=== PATIENT | male | born 1995 | race Caucasian/White ===

== ENCOUNTER 2016-11-15 19:44 | Emergency (ER) | payer BC, OTHER ==
[2016-11-15 20:03] VITALS: BP 136/81
[2016-11-15] MEDS ORDERED: Ciprofloxacin TAB* 500 MG PO ONE (20:33)
--- NOTE | 2016-11-15 20:33 | UC ---
Complaint Male HPI - History of Current Complaint Chief Complaint: UCGU Stated Complaint: TESTICULAR PAIN Hx Obtained From: Patient Onset/Duration: Gradual Onset - has had intermittant testicular pain over past 1 -2 weeks. has been in both R or L side at times. seems worse after sitting wrong. is in monogamous relationship with girlfriend of 3 years. no penil drip or lesions. denies known injury Timing: Intermittent, Lasting Minutes Severity Initially: Mild Severity Currently: Mild Location: Testicle - does not radiate, described as "dull ache" Alleviating Factor(s): Meds - ibuprofen, Ice Associated Signs And Symptoms: Positive: Negative. Negative: Back Pain, Fever, Hematuria, Dysuria, Constipation, Blood in Stool, Rectal Pain, Nausea, Penile Swelling, Penile Discharge - Allergies/Home Medications Allergies/Adverse Reactions: Allergies Allergy/AdvReac Type Severity Reaction Status Date / Time No Known Allergies Allergy Verified 10/28/15 05:14 PMH/Surg Hx/FS Hx/Imm Hx Previously Healthy: Yes Cardiovascular History Of: Denies: Cardiac Disorders Respiratory History Of: Denies: Asthma GI/ History Of: Denies: Gastroesophageal Reflux Psychological History Of: Denies: Anxiety, Depression - Surgical History Surgical History: None - Family History Known Family History: Positive: None - Social History Occupation: Employed Full-time - teacher Lives: With Family Alcohol Use: None Substance Use Type: None Smoking Status (MU): Never Smoked Tobacco Review of Systems Constitutional: Negative Skin: Negative Respiratory: Negative Cardiovascular: Negative Gastrointestinal: Negative Genitourinary: Other - testicular ache Motor: Negative Neurovascular: Negative Neurological: Negative Psychological: Negative All Other Systems Reviewed And Are Negative: Yes Physical Exam Triage Information Reviewed: Yes Appearance: Well-Appearing, No Pain Distress, Well-Nourished Vital Signs: Initial Vital Signs Temp 100.1 F 11/15/16 19:55 Pulse 128 11/15/16 19:55 Resp 18 11/15/16 19:55 BP 136/81 11/15/16 19:55 Pulse Ox 99 11/15/16 19:55 Vital Signs Reviewed: Yes Respiratory Exam: Normal Cardiovascular Exam: Normal Abdominal Exam: Normal Abdomen Description: Positive: Other: - no penile lesion or discharge, scrotum: no erythem, swelling or lesions, no pain or tenderness. no hernias Bilateral testicles smooth, equal in size and consistency, no palp pain, no mass or lesions. no vericocele or swollen epididymis. pt states testicles are not painful when touched, more when he sits or he "massages" his testicles. crimesteric reflex present bilaterally Musculoskeletal Exam: Normal Neurological Exam: Normal Psychological Exam: Normal Skin Exam: Normal Complaint Male Course/Dx - Differential Dx/Diagnosis Differential Diagnosis/HQI/PQRI: Epididymitis, Testicular Torsion, Trauma, Urinary Tract Infection, Other - STI, hydrocele, varicocele, hernia Provider Diagnoses: testicular pain Discharge - Discharge Plan Condition: Stable Disposition: HOME Prescriptions: Ciprofloxacin TAB* [Cipro Tab*] 500 mg PO BID #20 tab Patient Education Materials: Testicle Pain (ED) Referrals: Sydnie Ayala NP [Primary Care Provider] - Additional Instructions: Rest may use ice to area of pain use ibuprofen 800mg every 6 hours as needed for pain use antibiotic (Cipro) as prescribed. If your pain worsens at any time please report to the ER
== END 2016-11-15 20:50 | disposition home or self-care (01) ==
LOC: UCEAST 19:44
DX: N50.811 Right testicular pain (principal); N50.812 Left testicular pain
CPT/HCPCS: 99202; A9270-GY; G0463

== ENCOUNTER 2017-07-07 14:33 | Emergency (ER) | payer BC, OTHER ==
[2017-07-07 15:17] VITALS: BP 130/68
[2017-07-07] MEDS ORDERED: predniSONE TAB* 20 MG PO ONE (15:56)
--- NOTE | 2017-07-07 15:59 | UC ---
Lower Extremity/Ankle HPI - HPI Summary HPI Summary: 22 yo male with right great toe and redness x days no trauma hurts to bear wt - History of Current Complaint Chief Complaint: UCLowerExtremity Stated Complaint: FOOT PAIN Time Seen by Provider: 07/07/17 15:50 Hx Obtained From: Patient Onset/Duration: Gradual Onset, Lasting Days Severity Initially: Mild Severity Currently: Moderate Pain Intensity: 4 - 8/10 with wt bearing Pain Scale Used: 0-10 Numeric Aggravating Factor(s): Standing, Ambulation Alleviating Factor(s): Rest Able to Bear Weight: Yes - Allergies/Home Medications Allergies/Adverse Reactions: Allergies Allergy/AdvReac Type Severity Reaction Status Date / Time No Known Allergies Allergy Verified 07/07/17 15:17 Home Medications: Home Medications Ibuprofen TAB* [Advil TAB*] 800 mg PO ONCE 07/07/17 [History Confirmed 07/07/17] PMH/Surg Hx/FS Hx/Imm Hx Previously Healthy: Yes - Surgical History Surgical History: None - Family History Known Family History: Positive: Hypertension, Other - no known hx of gout - Social History Alcohol Use: Occasionally Substance Use Type: None Smoking Status (MU): Never Smoked Tobacco Review of Systems Constitutional: Negative Skin: Negative Eyes: Negative ENT: Negative Respiratory: Negative Cardiovascular: Negative Gastrointestinal: Negative Genitourinary: Negative Motor: Negative Neurovascular: Negative Musculoskeletal: Arthralgia Neurological: Negative Psychological: Negative Is Patient Immunocompromised?: No All Other Systems Reviewed And Are Negative: Yes Physical Exam Triage Information Reviewed: Yes Appearance: Well-Appearing, No Pain Distress, Well-Nourished Vital Signs: Initial Vital Signs Temp 100 F 07/07/17 15:13 Pulse 96 07/07/17 15:13 Resp 18 07/07/17 15:13 BP 130/68 07/07/17 15:13 Pulse Ox 100 07/07/17 15:13 Eyes: Positive: Conjunctiva Clear ENT: Positive: Hearing grossly normal. Negative: Nasal congestion, Nasal drainage, Trismus, Muffled/hoarse voice Dental: Negative: Gross Decay/Caries @, Dental Fracture @ Neck: Positive: Supple Respiratory: Positive: Lungs clear, Normal breath sounds, No respiratory distress Cardiovascular: Positive: RRR, No Murmur Musculoskeletal: Positive: Other: - right first MTP joint red and swollen Neurological: Positive: Alert, Muscle Tone Normal Psychological Exam: Normal Skin Exam: Normal Diagnostics - Radiology No standard instances Xray Interpretation: No Acute Changes Radiology Interpretation Completed By: Radiologist Lower Extremity Course/Dx - Differential Dx/Diagnosis Provider Diagnoses: gout Discharge - Discharge Plan Condition: Stable Disposition: HOME Prescriptions: Prednisone 60 mg PO DAILY #6 tab Patient Education Materials: Low Purine Diet (ED), Gout (ED) Referrals: [facility] [place] [facility]FERR[facility] [Outside] - As Soon As Possible Additional Instructions: post op shoe recheck in 4 days if not better
--- NOTE | 2017-07-07 16:37 | RAD ---
INDICATION: Atraumatic right great toe metatarsal phalangeal joint pain TECHNIQUE: 3 views of the right great toe were obtained. FINDINGS: The visualized bones are normal alignment. Joint spaces appear maintained. No fracture is seen. IMPRESSION: NO EVIDENCE FOR FRACTURE. IF THE PATIENT'S SYMPTOMS PERSIST RECOMMEND FOLLOW-UP IMAGING.
== END 2017-07-07 16:47 | disposition home or self-care (01) ==
LOC: UCEAST 14:33
DX: M10.9 Gout, unspecified (principal)
CPT/HCPCS: 99213; G0463; J7512

== ENCOUNTER 2017-10-12 15:45 | Emergency (ER) | payer OTHER ==
--- NOTE | 2017-10-12 17:14 | UC ---
Abdominal Pain Male HPI - HPI Summary HPI Summary: 22 YO MALE WITH LLQ ABD PAIN X 2-3 DAYS FEELS BLOATED ANOREXIC SL NAUSEA NO VOMITING NO DIARRHEA NO CONSTIPATION NORMAL BMs NO UTI SYMPTOMS NO TESTICULAR PAIN NO BACK PAIN - History of Current Complaint Chief Complaint: UCAbdominalPain Stated Complaint: ABD PAIN Time Seen by Provider: 10/12/17 16:58 Hx Obtained From: Patient Onset/Duration: Gradual Onset, Lasting Hours, Lasting Days Severity Initially: Moderate Severity Currently: Moderate Pain Intensity: 3 - AT REST, 6+ WITH MOVEMENT Pain Scale Used: 0-10 Numeric Location: Discrete At: LLQ Radiates: No Character: Aching, Dull Aggravating Factor(s): Movement Alleviating Factor(s): Rest Associated Signs And Symptoms: Positive: Decreased Appetite - Risk Factors Testicular Torsion: Negative Cardiac Risk Factors: Negative - Allergies/Home Medications Allergies/Adverse Reactions: Allergies Allergy/AdvReac Type Severity Reaction Status Date / Time No Known Allergies Allergy Verified 10/12/17 15:57 Home Medications: Home Medications Simethicone TAB* [Mylicon TAB*] 80 mg PO AC PRN 10/12/17 [History Confirmed 05/22] PMH/Surg Hx/FS Hx/Imm Hx Previously Healthy: Yes - Surgical History Surgical History: None - Family History Known Family History: Positive: Hypertension, Other - no known hx of gout - Social History Alcohol Use: Rare Substance Use Type: None Smoking Status (MU): Never Smoked Tobacco - Immunization History Most Recent Influenza Vaccination: none Review of Systems Constitutional: Negative Skin: Negative Eyes: Negative ENT: Negative Respiratory: Negative Cardiovascular: Negative Gastrointestinal: Abdominal Pain Genitourinary: Negative Motor: Negative Neurovascular: Negative Musculoskeletal: Negative Neurological: Negative Psychological: Negative Is Patient Immunocompromised?: No All Other Systems Reviewed And Are Negative: Yes Physical Exam Triage Information Reviewed: Yes Appearance: Well-Appearing, No Pain Distress, Well-Nourished Vital Signs: Initial Vital Signs Temp 99.3 F 10/12/17 15:54 Pulse 100 10/12/17 15:54 Resp 16 10/12/17 15:54 BP 129/83 10/12/17 15:54 Pulse Ox 99 10/12/17 15:54 Eyes: Positive: Conjunctiva Clear ENT: Positive: Hearing grossly normal, Pharynx normal, Uvula midline. Negative : Muffled voice, Hoarse voice Neck: Positive: Supple, Nontender Respiratory: Positive: Lungs clear, Normal breath sounds, No respiratory distress, No accessory muscle use Cardiovascular: Positive: RRR, No Murmur Abdomen Description: Positive: No Organomegaly, Soft. Negative: Nontender - TENDER LLQ, Hernia @, Hepatomegaly, Splenomegaly Bowel Sounds: Positive: Hyperactive Musculoskeletal: Positive: ROM Intact, No Edema Neurological: Positive: Alert Psychological Exam: Normal Skin Exam: Normal Diagnostics - Radiology No standard instances Xray Interpretation: Positive (See Comments) - a lot ot stool in colon Radiology Interpretation Completed By: Radiologist Abd Pain Male Course/Dx - Differential Dx/Clinical Impression Provider Diagnoses: adbominal pain of uncertain cause Discharge - Discharge Plan Condition: Stable Disposition: HOME Patient Education Materials: Acute Abdominal Pain (ED) Forms: *Work Release Referrals: Reese Kessler MD [Primary Care Provider] - 1 Day Additional Instructions: your xr showed a lot of stool in the colon I suggest 30cc (2 tablespoons ) of milk of magnesia every 6 hours x 3 doses Get rechecked for new or worsening symptoms (best to be seen in ER if symptoms worsen) Get rechecked tomorrow if not completely better (you are welcome to return here if unable to get in to see your MD)
--- NOTE | 2017-10-12 17:52 | RAD ---
HISTORY: Left-sided abdominal pain COMPARISONS: None VIEWS: Frontal supine and upright views of the abdomen. FINDINGS: BOWEL: There is a nonobstructive bowel gas pattern. There is a large amount of stool within the colon. CALCULI: There are no abnormal calculi. BONES AND SOFT TISSUES: There are no osseous abnormalities. OTHER FINDINGS: The lung bases are clear. There is no subphrenic gas. IMPRESSION: NONOBSTRUCTIVE BOWEL GAS PATTERN. LARGE AMOUNT OF STOOL WITHIN THE COLON
[2017-10-12 18:09] VITALS: BP 121/73
== END 2017-10-12 18:05 | disposition home or self-care (01) ==
LOC: UCEAST 15:45
DX: R10.32 Left lower quadrant pain (principal); R14.0 Abdominal distension (gaseous); R63.0 Anorexia; R11.0 Nausea
CPT/HCPCS: 74019; 81003; 99212; G0463

== ENCOUNTER 2017-10-12 22:01 | Emergency (ER) | payer OTHER ==
[2017-10-12 23:12] LABS: ABS Basophils 0.1 10^3/ul (0-0.2); ABS Eosinophils 0.2 10^3/ul (0-0.6); ABS Lymphocytes 3.6 10^3/ul (1.0-4.8); ABS Monocytes 1.4 10^3/ul (0-0.8); ABS Neutrophils 8.1 10^3/ul (1.5-7.7); ABS Nucleated RBC 0 10^3/ul; Eosinophil % 1.4 % (0-6); Hematocrit 50 % (42-52); Hemoglobin 16.8 g/dl (14.0-18.0); Mean Corpuscular HGB Conc 33 g/dl (31-36); Mean Corpuscular Hemoglobin 29 pg (27-31); Mean Corpuscular Volume 87 fL (80-94); Mean Platelet Volume 8 um3 (7.4-10.4); Nucleated Red Blood Cells % 0; Platelet Count 293 10^3/ul (150-450); Red Blood Count 5.82 10^6/ul (4.0-5.4); Red Cell Distribution Width 14 % (10.5-15); White Blood Count 13.3 10^3/ul (3.5-10.8)
[2017-10-13] MEDS ORDERED: Ondansetron INJ* 2 MG/ML VIAL IV ONE (00:02)
[2017-10-13] MEDS ORDERED: Ketorolac INJ* 30 MG/ML 1 ML VIAL IV PUSH ONE (00:02)
[2017-10-13] MEDS ORDERED: Iohexol 300* (CONTRAST) 10 ML SDV IV ONE (01:11)
--- NOTE | 2017-10-13 01:26 | ED ---
Abdominal Pain/Male - HPI Summary HPI Summary: 22M presents with LLQ for two days. He admits to occasionally nausea but no vomiting. He has had normal bowel movements the past couple days. He denies any diarrhea or constipation. He denies any dysuria, He denies any flank pain. He has never had this pain before. He denies any fever. He denies any testicular pain or penile discharge. He was seen at and told that has stool in colon and to take milk of magnesium which made it worst. He has had a normal appetite. - History of Current Complaint Chief Complaint: EDAbdPain Stated Complaint: ABD PAIN Time Seen by Provider: 10/12/17 23:51 Pain Intensity: 9 - Allergies/Home Medications Allergies/Adverse Reactions: Allergies Allergy/AdvReac Type Severity Reaction Status Date / Time No Known Allergies Allergy Verified 10/12/17 15:57 PMH/Surg Hx/FS Hx/Imm Hx Endocrine/Hematology History: Denies: Hx Diabetes, Hx Thyroid Disease Cardiovascular History: Denies: Hx Hypertension Respiratory History: Denies: Hx Asthma, Hx Chronic Obstructive Pulmonary Disease (COPD) GI History: Denies: Hx Ulcer Psychiatric History: Denies: Hx Anxiety, Hx Depression Infectious Disease History: No Infectious Disease History: Denies: Hx Hepatitis, Hx Human Immunodeficiency Virus (HIV), History Other Infectious Disease, Traveled Outside the [place] in Last 30 Days - Family History Known Family History: Positive: Hypertension, Other - no known hx of gout - Social History Alcohol Use: Rare Substance Use Type: Reports: None Smoking Status (MU): Never Smoked Tobacco Review of Systems Negative: Fever Negative: Chest Pain Negative: Shortness Of Breath Positive: Abdominal Pain, Nausea. Negative: Vomiting, Diarrhea All Other Systems Reviewed And Are Negative: Yes Physical Exam Triage Information Reviewed: Yes Vital Signs On Initial Exam: Initial Vitals Temp Pulse Resp BP Pulse Ox 98.3 F 105 18 153/74 98 10/12/17 22:02 10/12/17 22:02 10/12/17 22:02 10/12/17 22:02 10/12/17 22:02 Vital Signs Reviewed: Yes Appearance: Positive: Well-Appearing Skin: Positive: Warm, Dry Head/Face: Positive: Normal Head/Face Inspection Eyes: Positive: Normal, Conjunctiva Clear Respiratory/Lung Sounds: Positive: Clear to Auscultation, Breath Sounds Present Cardiovascular: Positive: Normal, RRR Abdomen Description: Positive: Soft, Other: - tenderness in LLQ Bowel Sounds: Positive: Present Musculoskeletal: Positive: Normal Neurological: Positive: Normal Psychiatric: Positive: Normal - Facundo Coma Scale Coma Scale Total: 15 Diagnostics - Vital Signs Vital Signs Temp Pulse Resp BP Pulse Ox 10/12/17 22:02 98.3 F 105 18 153/74 98 - Laboratory Lab Results: Lab Results 10/12/17 10/12/17 Range/Units 22:55 22:55 WBC 13.3 H (3.5-10.8) 10^3/ul RBC 5.82 H (4.0-5.4) 10^6/ul Hgb 16.8 (14.0-18.0) g/dl Hct 50 (42-52) % MCV 87 (80-94) fL MCH 29 (27-31) pg MCHC 33 (31-36) g/dl RDW 14 (10.5-15) % Plt Count 293 (150-450) 10^3/ul MPV 8 (7.4-10.4) um3 Neut % (Auto) 60.5 (38-83) % Lymph % (Auto) 27.0 (25-47) % [place] % (Auto) 10.3 H (1-9) % Eos % (Auto) 1.4 (0-6) % Baso % (Auto) 0.8 (0-2) % Absolute Neuts (auto) 8.1 H (1.5-7.7) 10^3/ul Absolute Lymphs (auto) 3.6 (1.0-4.8) 10^3/ul Absolute Monos (auto) 1.4 H (0-0.8) 10^3/ul Absolute Eos (auto) 0.2 (0-0.6) 10^3/ul Absolute Basos (auto) 0.1 (0-0.2) 10^3/ul Absolute Nucleated RBC 0 10^3/ul Nucleated RBC % 0 Sodium 139 (133-145) mmol/L Potassium 3.4 L (3.5-5.0) mmol/L Chloride 103 (101-111) mmol/L Carbon Dioxide 28 (22-32) mmol/L Anion Gap 8 (2-11) mmol/L BUN 11 (6-24) mg/dL Creatinine 1.20 H (0.67-1.17) mg/dL Est GFR ( Amer) 96.5 (>60) Est GFR (Non-Af Amer) 75.0 (>60) BUN/Creatinine Ratio 9.2 (8-20) Glucose 94 (70-100) mg/dL Calcium 9.2 (8.6-10.3) mg/dL Total Bilirubin 0.50 (0.2-1.0) mg/dL AST 51 H (13-39) U/L ALT 108 H (7-52) U/L Alkaline Phosphatase 95 (34-104) U/L C-React Prot High Sens 10.70 mg/L Total Protein 7.5 (6.4-8.9) g/dL Albumin 4.5 (3.2-5.2) g/dL Globulin 3.0 (2-4) g/dL Albumin/Globulin Ratio 1.5 (1-3) Lipase 20 (11.0-82.0) U/L Result Diagrams: 10/12/17 22:55 10/12/17 22:55 Lab Statement: Any lab studies that have been ordered have been reviewed, and results considered in the medical decision making process. - CT No standard instances CT Interpretation: Positive (See Comments) - LLQ epiploic appendagitis CT Interpretation Completed By: Radiologist Abdominal Pain Fem Course/Dx - Course Course Of Treatment: 22M presents with LLQ for two days. He admits to occasionally nausea but no vomiting. He has had normal bowel movements the past couple days. He denies any diarrhea or constipation. He denies any dysuria, He denies any flank pain. He has never had this pain before. He denies any fever. He denies any testicular pain or penile discharge. He was seen at and told that has stool in colon and to take milk of magnesium which made it worst. He has had a normal appetite. on exam tenderness in LLQ. wbc 13. crp 10. Ct shows epiplopic appendagitis. explained results to patient and he understand and agrees with plan. - Diagnoses Differential Diagnosis/HQI/PQRI: Constipation, Diverticulitis, Urinary Tract Infection Provider Diagnoses: Abdominal pain, Epiploic appendagitis Discharge - Discharge Plan Condition: Good Disposition: HOME Patient Education Materials: Acute Abdominal Pain (ED) Referrals: Reese Kessler MD [Primary Care Provider] - Additional Instructions: Drink small amounts of fluid as tolerated When able to eat follow BRAT diet: Bananas, rice, applesauce, toast Take ibuprofen or Tylenol for pain as needed every 6 hours Follow up with primary within 5 days Return to ED if develop any new or worsening symptoms
[2017-10-13 03:08] LABS: Urine Appearance Clear; Urine Blood Negative (Negative); Urine Color Yellow; Urine Ketones Negative (Negative); Urine Protein Negative (Negative); Urine Specific Gravity > 1.060 (1.010-1.030); Urine Urobilinogen Negative (Negative)
[2017-10-13 03:49] VITALS: BP 105/67
--- NOTE | 2017-10-13 08:08 | RAD ---
CLINICAL HISTORY: Left lower quadrant pain COMPARISON: None TECHNIQUE: Contrast enhanced CT examination of the abdomen and pelvis from the lung bases through the initial tuberosities. The patient received 118 mL Omnipaque 300 intravenously prior to imaging.The patient received oral contrast as well prior to imaging. FINDINGS: VISUALIZED LUNG BASES: The visualized lung bases are grossly clear. There is no pleural effusion. ABDOMEN AND PELVIS: The liver is homogenously hypodense and is top normal in size measuring up to 20.8 cm in the cephalocaudal dimension (coronal image 48). The homogenously attenuating spleen is top normal in size measuring 12.5 cm in maximum axial dimension. The pancreas and adrenal glands are grossly normal in appearance. The gallbladder is normal. The kidneys are normal in appearance without focal mass, calcification or signs of hydronephrosis. Neural contrast has progressed as far as the rectum. The small and large bowel are not distended. The patient's normal appendix is identified in the right lower quadrant measuring 5 mm in diameter (coronal image 40). Adjacent to the descending colon (axial image 78) there is an 11 mm fat attenuating focus with peripheral infiltration. Adjacent to this there is no significant alcohol wall thickening or pericolonic infiltration. The gas and stool-filled colon is otherwise normal in appearance. There is no gross retroperitoneal lymphadenopathy. There are top normal mesenteric lymph nodes measuring up to 9 mm in short axis diameter (coronal image 47 for example). The pelvic viscera is normal in appearance. The abdominal aorta and iliac arteries are normal in course and diameter. The visualized bones are normal. IMPRESSION: 1. CT findings are most consistent with epiploic appendagitis adjacent to the distal descending colon. 2. Top normal mesenteric lymph nodes could be seen in the setting of mesenteric adenitis but are likely incidental in the presence of #1. 3. Hepatic steatosis and mild hepatosplenomegaly.
== END 2017-10-13 03:50 | disposition home or self-care (01) ==
LOC: ED 22:01
DX: R10.32 Left lower quadrant pain (principal); K63.89 Other specified diseases of intestine
CPT/HCPCS: 36415; 74177; 80053; 81003; 83690; 85025; 86141; 96374; 96375; 99283; J1885; J2405; Q9967

== ENCOUNTER 2018-05-11 21:19 | Emergency (ER) | payer OTHER ==
[2018-05-11] MEDS ORDERED: ALPRAZolam TAB* 0.5 MG PO ONE (22:49)
[2018-05-11 23:28] LABS: ABS Basophils 0.1 10^3/ul (0-0.2); ABS Eosinophils 0.1 10^3/ul (0-0.6); ABS Lymphocytes 2.3 10^3/ul (1.0-4.8); ABS Monocytes 0.7 10^3/ul (0-0.8); ABS Neutrophils 5.9 10^3/ul (1.5-7.7); ABS Nucleated RBC 0 10^3/ul; Eosinophil % 1.3 % (0-6); Hematocrit 51 % (42-52); Lymphocyte % 25.6 % (25-47); Mean Corpuscular HGB Conc 34 g/dl (31-36); Mean Corpuscular Hemoglobin 29 pg (27-31); Mean Corpuscular Volume 87 fL (80-94); Mean Platelet Volume 8.5 um3 (7.4-10.4); Nucleated Red Blood Cells % 0.2; Platelet Count 242 10^3/ul (150-450); Red Blood Count 5.81 10^6/ul (4.00-5.40); Red Cell Distribution Width 14 % (10.5-15); White Blood Count 9.2 10^3/ul (3.5-10.8)
[2018-05-11 23:51] LABS: EGFR Non-African American 74.3 (>60)
--- NOTE | 2018-05-12 00:36 | ED ---
HPI Chest Pain - HPI Summary HPI Summary: This is scribe Vitor Daugherty documenting for attending Herminia Carnes M.D. Patient is a 22 y/o M w/ c/o left chest pain for the past week. Chest pain is noted to come and go, with episodes lasting 10-15 minutes. Chest pain is stated to radiate to the right side of chest sometimes. He reports no pain with movement. Patient denies any other PMHx and drug usage. On triage, pain is rated 4/10 and nothing is noted to aggravate/alleviate Sx. Home medications and allergies are reviewed. I, Dr. Carnes, personally performed the services described in this documentation as scribed in my presence and it is both accurate and complete. - History of Current Complaint Chief Complaint: EDChestPainROMI Time Seen by Provider: 05/11/18 22:39 Hx Obtained From: Patient Onset/Duration: Started Days Ago - seven days ago Timing: Intermittent - episodes last 10-15 minutes Current Severity: Moderate - 4/10 Pain Intensity: 4 Pain Scale Used: 0-10 Numeric - 4/10 Chest Pain Location: Discrete at: - left side Chest Pain Radiates: Yes Chest Pain Radiates To:: Other - right side of chest Aggravating Factor(s): Nothing Alleviating Factor(s): Nothing Associated Signs and Symptoms: Positive: Chest Pain - Allergy/Home Medications Allergies/Adverse Reactions: Allergies Allergy/AdvReac Type Severity Reaction Status Date / Time No Known Allergies Allergy Verified 05/11/18 21:25 PMH/Surg Hx/FS Hx/Imm Hx Endocrine/Hematology History: Denies: Hx Diabetes, Hx Thyroid Disease Cardiovascular History: Denies: Hx Hypertension Respiratory History: Denies: Hx Asthma, Hx Chronic Obstructive Pulmonary Disease (COPD) GI History: Denies: Hx Ulcer Psychiatric History: Denies: Hx Anxiety, Hx Depression Infectious Disease History: No Infectious Disease History: Denies: Hx Hepatitis, Hx Human Immunodeficiency Virus (HIV), History Other Infectious Disease, Traveled Outside the [place] in Last 30 Days - Family History Known Family History: Positive: Hypertension, Other - no known hx of gout - Social History Alcohol Use: Rare Substance Use Type: Reports: None Smoking Status (MU): Never Smoked Tobacco Review of Systems Negative: Fever - on vitals, temperature is 97.5 F Positive: Chest Pain - left sided chest pain that is reported to occasionally radiate to the right All Other Systems Reviewed And Are Negative: Yes Physical Exam - Summary Physical Exam Summary: VITAL SIGNS: Reviewed. GENERAL: Patient is a well-developed and nourished male who is lying comfortable in the stretcher. Patient is not in any acute respiratory distress. HEAD AND FACE: No signs of trauma. No ecchymosis, hematomas or skull depressions. No sinus tenderness. EYES: PERRLA, EOMI x 2, No injected conjunctiva, no nystagmus. EARS: Hearing grossly intact. Ear canals and tympanic membranes are within normal limits. MOUTH: Oropharynx within normal limits. NECK: Supple, trachea is midline, no adenopathy, no JVD, no carotid bruit, no c- spine tenderness, neck with full ROM. CHEST: Symmetric, no tenderness at palpation LUNGS: Clear to auscultation bilaterally. No wheezing or crackles. CVS: Regular rate and rhythm, S1 and S2 present, no murmurs or gallops appreciated. ABDOMEN: Soft, non-tender. No signs of distention. No rebound no guarding, and no masses palpated. Bowel sounds are normal. EXTREMITIES: FROM in all major joints, no edema, no cyanosis or clubbing. NEURO: Alert and oriented x 3. No acute neurological deficits. Speech is normal and follows commands. SKIN: Dry and warm Triage Information Reviewed: Yes Vital Signs On Initial Exam: Initial Vitals Temp Pulse Resp BP Pulse Ox 97.5 F 94 20 120/78 99 05/11/18 21:23 05/11/18 21:23 05/11/18 21:23 05/11/18 21:23 05/11/18 21:23 Vital Signs Reviewed: Yes Diagnostics - Vital Signs Vital Signs Temp Pulse Resp BP Pulse Ox 05/12/18 00:00 79 12 95 05/11/18 23:17 16 05/11/18 23:05 75 20 113/72 97 05/11/18 23:00 79 16 97 05/11/18 22:37 82 98 05/11/18 22:36 90 143/87 98 05/11/18 21:23 97.5 F 94 20 120/78 99 - Laboratory Lab Results: Lab Results 05/11/18 05/11/18 Range/Units 23:19 23:19 WBC 9.2 (3.5-10.8) 10^3/ul RBC 5.81 H (4.00-5.40) 10^6/ul Hgb 17.0 (14.0-18.0) g/dl Hct 51 (42-52) % MCV 87 (80-94) fL MCH 29 (27-31) pg MCHC 34 (31-36) g/dl RDW 14 (10.5-15) % Plt Count 242 (150-450) 10^3/ul MPV 8.5 (7.4-10.4) um3 Neut % (Auto) 64.1 (38-83) % Lymph % (Auto) 25.6 (25-47) % Vance % (Auto) 8.1 H (0-7) % Eos % (Auto) 1.3 (0-6) % Baso % (Auto) 0.9 (0-2) % Absolute Neuts (auto) 5.9 (1.5-7.7) 10^3/ul Absolute Lymphs (auto) 2.3 (1.0-4.8) 10^3/ul Absolute Monos (auto) 0.7 (0-0.8) 10^3/ul Absolute Eos (auto) 0.1 (0-0.6) 10^3/ul Absolute Basos (auto) 0.1 (0-0.2) 10^3/ul Absolute Nucleated RBC 0 10^3/ul Nucleated RBC % 0.2 Sodium 141 (135-145) mmol/L Potassium 3.8 (3.5-5.0) mmol/L Chloride 106 (101-111) mmol/L Carbon Dioxide 24 (22-32) mmol/L Anion Gap 11 (2-11) mmol/L BUN 12 (6-24) mg/dL Creatinine 1.21 H (0.67-1.17) mg/dL Est GFR ( Amer) 89.9 (>60) Est GFR (Non-Af Amer) 74.3 (>60) BUN/Creatinine Ratio 9.9 (8-20) Glucose 110 H (70-100) mg/dL Calcium 10.1 (8.6-10.3) mg/dL Magnesium 2.0 (1.9-2.7) mg/dL Total Bilirubin 0.40 (0.2-1.0) mg/dL AST 97 H (13-39) U/L ALT 199 H (7-52) U/L Alkaline Phosphatase 111 H (34-104) U/L Total Creatine Kinase 140 (10-223) U/L Troponin I 0.00 (<0.04) ng/mL Total Protein 7.8 (6.4-8.9) g/dL Albumin 4.8 (3.2-5.2) g/dL Globulin 3.0 (2-4) g/dL Albumin/Globulin Ratio 1.6 (1-3) Monoscreen Pending Result Diagrams: 05/11/18 23:19 05/11/18 23:19 Lab Statement: Any lab studies that have been ordered have been reviewed, and results considered in the medical decision making process. - Radiology CXR Xray Interpretation: No Acute Changes Radiology Interpretation Completed By: ED Physician - no acute process, pending official report - EKG 2044 Cardiac Rate: NL - rate of 95 BPM EKG Rhythm: Sinus Rhythm EKG Interpretation: Normal axis. Normal interval. No ischemic changes Re-Evaluation - Re-Evaluation First Eval Re-Evaluation Time: 00:32 Comment: Discussed results of labs and tests with patient. Patient will be discharged to home and follow up with PCP in 1-2 days. Patient is agreeable with plan. Chest Pain Course/Dx - Course Assessment/Plan: Patient is a 22 y/o M w/ c/o left chest pain for the past week. Chest pain is noted to come and go, with episodes lasting 10-15 minutes. Chest pain is stated to radiate to the right side of chest sometimes. He reports no pain with movement. Patient denies any other PMHx and drug usage. On triage, pain is rated 4/10 and nothing is noted to aggravate/alleviate Sx. During ED course, patient was given alprazolam 0.5 mg PO UC ONCE. Labs showed AST 97 H, ALT 199 H, 111 H, glucose 110 H, creatinine 1.21 H, RBC 5.81 H, mono % 8.1 H. Patient will follow up with PCP with regards to elevated liver enzymes for further testing. He agrees with follow up plan and was diagnosed with atypical chest pain. - Diagnoses Provider Diagnoses: Atypical chest pain Discharge - Sign-Out/Discharge Documenting (check all that apply): Patient Departure - discharge - Discharge Plan Condition: Stable Disposition: HOME Patient Education Materials: Chest Pain (ED) Referrals: Enrrique Martinez MD [Primary Care Provider] - 2 Days Additional Instructions: Follow up with primary care physician in 1-2 days. Return to ED for any changing or worsening symptoms.
[2018-05-12 00:49] VITALS: BP 115/66
--- NOTE | 2018-05-12 07:43 | RAD ---
Indication: Chest pain. Single frontal view of the chest performed at 2253 hours was reviewed. No prior study is available for comparison. No mediastinal shift is noted. Heart is of normal size and configuration. Lung browning appear clear. IMPRESSION: NO ACTIVE CARDIOPULMONARY DISEASE IS NOTED. R0
== END 2018-05-12 00:50 | disposition home or self-care (01) ==
LOC: ED 21:19
DX: R07.89 Other chest pain (principal)
CPT/HCPCS: 36415; 71045; 80053; 80074; 82550; 83735; 84484; 85025; 86308; 93005; 99283; A9270-GY

== ENCOUNTER 2018-06-06 12:00 | Emergency (ER) | payer OTHER ==
[2018-06-06] MEDS ORDERED: Al Hydrox/Mg Hydrox/Simet LIQ* 30 ML UDC PO ONE (12:14)
[2018-06-06] MEDS ORDERED: Famotidine TAB* 20 MG PO ONE (12:14)
[2018-06-06] MEDS ORDERED: Metoprolol Tartrate IV* 1 MG/ML 5 ML VIAL IV ONE (12:22)
[2018-06-06] MEDS ORDERED: Metoprolol Tartrate IV* 1 MG/ML 5 ML VIAL ONE (12:23)
--- NOTE | 2018-06-06 12:23 | ED ---
HPI Chest Pain - HPI Summary HPI Summary: Patient is a 22 y/o M w/ c/o left-sided chest pain onsetting last night. He reports pain aggravation when upright and when breathing in. Pain is lessened by lying on flanks and lying on back/chest. On triage, pain is rated 3/10. Patient was here at [facility] a month ago for chest pain. He was informed to return to ED for any changing or worsening Sx. Took EKG at time which was described as "normal" by patient, he states he had high liver enzymes at the time. He denies any other PMHx. Patient does not feel rapid heart rate. He reports some cough today but describes it as "not serious". No abnormal routine reported. 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 He denies smoking. Uncle had aortic value replacement. Home medications and allergies reviewed. - History of Current Complaint Chief Complaint: EDChestPainROMI Time Seen by Provider: 06/06/18 12:13 Hx Obtained From: Patient Onset/Duration: Started Days Ago - onset yesterday Timing: Constant Current Severity: Mild - 3/10 Pain Intensity: 3 Pain Scale Used: 0-10 Numeric - 3/10 Chest Pain Location: Discrete at: - left side Aggravating Factor(s): Position - upright position, Other: - breathing in Alleviating Factor(s): Position - lying on chest, back, or sides Associated Signs and Symptoms: Positive: Chest Pain, Cough - "not serious", Other: - NEGATIVE: rapid heart rate - Allergy/Home Medications Allergies/Adverse Reactions: Allergies Allergy/AdvReac Type Severity Reaction Status Date / Time No Known Allergies Allergy Verified 05/11/18 21:25 PMH/Surg Hx/FS Hx/Imm Hx Endocrine/Hematology History: Denies: Hx Diabetes, Hx Thyroid Disease Cardiovascular History: Denies: Hx Hypertension Respiratory History: Denies: Hx Asthma, Hx Chronic Obstructive Pulmonary Disease (COPD) GI History: Denies: Hx Ulcer Psychiatric History: Denies: Hx Anxiety, Hx Depression Infectious Disease History: No Infectious Disease History: Denies: Hx Hepatitis, Hx Human Immunodeficiency Virus (HIV), History Other Infectious Disease, Traveled Outside the [place] in Last 30 Days - Family History Known Family History: Positive: Hypertension, Other - no known hx of gout - Social History Alcohol Use: Rare Substance Use Type: Reports: None Smoking Status (MU): Never Smoked Tobacco Review of Systems Positive: Chest Pain, Other - NEGATIVE: rapid heart rate Positive: Cough All Other Systems Reviewed And Are Negative: Yes Physical Exam - Summary Physical Exam Summary: Appearance: Well appearing, no pain distress Skin: warm, dry, reflects adequate perfusion Head/face: normal Eyes: EOMI, ELGIN ENT: normal Neck: supple, non-tender Respiratory: CTA, breath sounds present Cardiovascular: tachycardic with regular rhythm, pulses symmetrical; no murmurs , no rubs. Abdomen: non-tender, soft Bowel Sounds: present Musculoskeletal: normal, strength/ROM intact; no LE edema Neuro: normal, sensory motor intact, A&Ox3 Triage Information Reviewed: Yes Vital Signs On Initial Exam: Initial Vitals Temp Pulse Resp BP Pulse Ox 97.6 F 82 16 157/94 98 06/06/18 12:05 06/06/18 12:05 06/06/18 12:05 06/06/18 12:05 06/06/18 12:05 Vital Signs Reviewed: Yes Diagnostics - Vital Signs Vital Signs Temp Pulse Resp BP Pulse Ox 06/06/18 12:05 97.6 F 82 16 157/94 98 - Laboratory Result Diagrams: 06/06/18 12:40 06/06/18 12:40 Lab Statement: Any lab studies that have been ordered have been reviewed, and results considered in the medical decision making process. - Radiology CXR Xray Interpretation: No Acute Changes Radiology Interpretation Completed By: Radiologist - no radiographic evidence of acute cardiopulmonary disease; this report was reviewed by ED physician. - EKG 1215 Cardiac Rate: NL - rate of 85 BPM EKG Rhythm: Sinus Rhythm ST Segment: Normal EKG Interpretation: incomplete RBBB, normal axis and normal intervals Re-Evaluation - Re-Evaluation First Eval Re-Evaluation Time: 13:50 Change: Improved Comment: Patient reports relief from pain. Discussed results of labs and tests with patient. He will be discharged to home and is agreeable with this plan. Chest Pain Course/Dx - Course Course Of Treatment: Patient presents for second visit of left-sided chest discomfort with deep breathing. His d-dimer is negative. His EKG is also negative, unchanged with heart rate in 80s. He does get a little tachycardic with sitting upright laboratories are otherwise benign. His LFTs are still mildly elevated but are returning to baseline. His creatinine is slightly elevated as well by his prior CPK was not elevated. His orally hydrated here treated symptomatically with some relief. We'll continue Pepcid, NSAID and recommend outpatient echocardiogram. Review sleep and set up for ultrasound of his liver. - Chest Pain Differential Diagnosis/HQI/PQRI: Acute IN, ACS, Chest Wall, GI Disease, Lower Respiratory Infection, Pulmonary Embolism - Diagnoses Provider Diagnoses: Atypical chest pain, Pleurisy Discharge - Sign-Out/Discharge Documenting (check all that apply): Patient Departure - discharge - Discharge Plan Condition: Stable Disposition: HOME Prescriptions: Famotidine TAB* [Pepcid 20 MG TAB*] 20 mg PO BID #30 tab Naproxen [Naproxen 500 mg tab] 500 mg PO BID #10 tablet. Patient Education Materials: Chest Pain (ED), Pleurisy (ED) Referrals: Enrrique Martinez MD [Primary Care Provider] - Additional Instructions: Call your doctor on Thursday for reevaluation. Also recommended is outpatient echocardiogram of the heart. Return with fever, difficulty breathing, new symptoms or other concerns as discussed. Stay very well-hydrated as discussed. Your LFTs are improving. - Billing Disposition and Condition Condition: STABLE Disposition: Home - Attestation Statements Document Initiated by Scribe: Yes Documenting Scribe: Vitor Daugherty Provider For Whom Elsa is Documenting (Include Credential): Navid Love MD Scribe Attestation: Vitor Pond, scribed for Navid Love MD on 06/06/18 at 1439. Scribe Documentation Reviewed: Yes Provider Attestation: The documentation as recorded by the Vitor yun accurately reflects the service I personally performed and the decisions made by me, Navid Love MD
--- OUTSIDE RECORDS SUMMARY | 2018-06-06 12:42 | XMS REPORT ---
:1995 External Reference #:[id number] Author Organization [facility] Address [address] [place] [address] Phone [phone] Care Team Providers Name Role Phone Enrrique Martinez MD Care Team Information Digital Asset Manager Unavailable Enrrique Martinez MD Primary Care Physician Unavailable Payers Type Date Identification Numbers Payment Provider Subscriber Medicaid Effective: Policy Number: [id number] [facility] Srinivas Butterfield 2018 PayID: [id number] [address] [place] [id number] Problems Description No Active Problems Family History Date Family Member(s) Problem(s) Comments General congenital blindness and deafness Father Non Contributory Mother Anxiety Social History Type Date Description Comments Cigarette Use Denies Tobacco Use ETOH Use Denies alcohol use Recreational Drug Use Denies Drug Use Allergies, Adverse Reactions, Alerts Date Description Reaction Status Severity Comments 03/15/2015 NKDA active Medications Medication Date Status Form Strength Qnty SIG Indications Ordering Provider Lorazepam Active Tablets 0.5mg 30tabs take 10/06 F41.9 Laurence Reed 018 - 1 pill Tin, by mouth CHIEF INVESTIGATOR up to twice daily as needed for anxiety Bupropion HCL Active Tablets ER 150mg 30tabs 1 by F33.1 Laurence Reed ER (XL) 018 24HR mouth Tin, every day CHIEF INVESTIGATOR No Active Hx Ernestina Medications 016 - [place], M.D. [address] 40mg 30caps 1 by 787.02 Markus Jones 015 - mouth M.D. every day 016 No Active Hx Unknown Medications 015 - 015 Rnmy-NP-Fusq Hx 0.5mg 100uni 1 Tab Ardha W/Fe 997 - ts Everyday. Kyra, Afnp-C 015 Medications Administered in Office Medication Date Status Form Strength Qnty SIG Indications Ordering Provider TB Intradermal Administered Injection Markus Robert, Test 015 M.D. Vital Signs Date Vital Result Comment 05/21/2018 BP Systolic 120 mmHg BP Diastolic 78 mmHg Heart Rate 76 /min Body Temperature 97.6 F Respiratory Rate 16 /min Height 73 inches 6'1" Weight 235.00 lb BMI (Body Mass Index) 31.0 kg/m2 11/23/2015 BP Systolic 128 mmHg BP Diastolic 80 mmHg Heart Rate 72 /min Body Temperature 97.9 F Respiratory Rate 16 /min Height 73 inches 6'1" Weight 181.00 lb BMI (Body Mass Index) 23.9 kg/m2 06/22/2015 BP Systolic 130 mmHg BP Diastolic 82 mmHg Heart Rate 72 /min Body Temperature 97.7 F Respiratory Rate 15 /min Height 73 inches 6'1" Weight 187.38 lb BMI (Body Mass Index) 24.7 kg/m2 03/15/2015 BP Systolic 120 mmHg BP Diastolic 80 mmHg Heart Rate 72 /min Body Temperature 97.0 F Respiratory Rate 16 /min Height 73 inches 6'1" Weight 190.50 lb BMI (Body Mass Index) 25.1 kg/m2 Results Test Date Test Result H/L Range Note CBC Auto Diff 05/11/2018 White Blood Count 9.2 10^3/uL 3.5-10.8 Red Blood Count 5.81 10^6/uL High 4.00-5.40 Hemoglobin 17.0 g/dL 14.0-18.0 Hematocrit 51 % 42-52 Mean Corpuscular Volume 87 fL 80-94 Mean Corpuscular Hemoglobin 29 pg 27-31 Mean Corpuscular HGB Conc 34 g/dL 31-36 Red Cell Distribution Width 14 % 10.5-15 Platelet Count 242 10^3/uL 150-450 Mean Platelet Volume 8.5 um3 7.4-10.4 Abs Neutrophils 5.9 10^3/uL 1.5-7.7 Abs Lymphocytes 2.3 10^3/uL 1.0-4.8 Abs Monocytes 0.7 10^3/uL 0-0.8 Abs Eosinophils 0.1 10^3/uL 0-0.6 Abs Basophils 0.1 10^3/uL 0-0.2 Abs Nucleated RBC 0 10^3/uL Granulocyte % 64.1 % 38-83 Lymphocyte % 25.6 % 25-47 Monocyte % 8.1 % High 0-7 Eosinophil % 1.3 % 0-6 Basophil % 0.9 % 0-2 Nucleated Red Blood Cells % 0.2 Laboratory test finding 05/11/2018 Monospot Negative Negative Comp Metabolic Panel 05/11/2018 Sodium 141 mmol/L 135-145 Chloride 106 mmol/L 101-111 Co2 Carbon Dioxide 24 mmol/L 22-32 Glucose 110 mg/dL High 70-100 Blood Urea Nitrogen 12 mg/dL 6-24 Creatinine 1.21 mg/dL High 0.67-1.17 BUN/Creatinine Ratio 9.9 8-20 Calcium 10.1 mg/dL 8.6-10.3 Total Protein 7.8 g/dL 6.4-8.9 Albumin 4.8 g/dL 3.2-5.2 Globulin 3.0 g/dL 2-4 Albumin/Globulin Ratio 1.6 1-3 Total Bilirubin 0.40 mg/dL 0.2-1.0 Alkaline Phosphatase 111 U/L High 34-104 Alt 199 U/L High 7-52 Egfr Non- 74.3 >60 Egfr 89.9 >60 1 Potassium 3.8 mmol/L 3.5-5.0 Anion Gap 11 mmol/L 2-11 Ast 97 U/L High 13-39 Laboratory test finding 05/11/2018 Magnesium 2.0 mg/dL 1.9-2.7 Creatine Kinase(CK) 140 U/L 10-223 Troponin I 0.00 ng/mL <0.04 Hepatitis Acute Panel 05/11/2018 Hepatitis B Surface Nonreactive Nonreactive Antigen Hepatitis B Core IgM Nonreactive Nonreactive Hepatitis A AB IgM Nonreactive Nonreactive Hepatitis C Antibody Nonreactive Nonreactive Comprehensive Metabolic Prof 06/22/2015 Sodium 138 mEq/L 134-149 Potassium 3.6 mEq/L 3.6-5.5 Chloride 101 mEq/L 94-112 Carbon Dioxide 25 mEq/L 21-32 Glucose 152 mg/dL High 70-105 2 BUN 15 mg/dL 6-26 Creatinine 1.1 mg/dL 0.6-1.4 BUN/Creat Ratio 13.6 CALC 8.0-36.0 Calcium 10.2 mg/dL 8.6-10.2 Total Protein 7.4 g/dL 6.4-8.3 Albumin 4.9 g/dL 3.8-5.5 Globulin 2.5 g/dL 2.0-4.8 A/G Ratio 2.0 CALC 0.6-2.3 Alk. Phosphatase 75 U/L 22-95 Alt (SGPT) 43 U/L High 7-35 3 Ast (Sgot) 30 U/L 5-34 Total Bilirubin 0.6 mg/dL 0.2-1.3 GFR Non- >60 ml/min/1.73m^ >=60 GFR >60 ml/min/1.73m^ >=60 Laboratory test finding 06/22/2015 TSH 2.96 mIU/L 0.50-6.00 Complete Blood Count 06/22/2015 WBC 7.2 x10^3/UL 3.6-9.6 RBC 5.55 x10^6/UL 3.90-5.70 HGB 16.2 g/dL 12.1-17.2 HCT 49 % 36-50 MCV 88.0 fL 82.2-97.4 MCH 29.2 pg 27.6-33.3 MCHC 33.1 g/dL 33.0-35.5 RDW 13.8 % High 11.6-13.7 PLT 247 x10^3/UL 150-400 MPV 7.9 fL 7.4-10.4 Gran # 4.7 x10^3/UL 1.5-7.2 Lymph# 2.2 x10^3/UL 0.7-4.9 [place]# 0.3 x10^3/UL 0.1-0.9 Gran % 63.5 % 42.2-75.2 Lymph % 31.6 % 20.5-51.1 [place]% 4.9 % 1.7-9.3 Laboratory test finding 06/22/2015 C-Reactive Protein, Quant 1.2 mg/L 0.0 -4.9 4 1 Because ethnic data is not always readily available, this report includes an eGFR for both -Americans and non- Americans. The National Kidney Disease Education Program (NKDEP) does not endorse the use of the MDRD equation for patients that are not between the ages of 18 and 70, are , have extremes of body size, muscle mass, or nutritional status, or are non- or non-. According to the National Kidney Foundation, irrespective of diagnosis, the stage of the disease is based on the level of kidney function: Stage Description GFR(mL/min/1.73 m(2)) 1 Kidney damage with normal or decreased GFR 90 2 Kidney damage with mild decrease in GFR 60-89 3 Moderate decrease in GFR 30-59 4 Severe decrease in GFR 15-29 5 Kidney failure <15 (or dialysis) 2 RESULTS VERIFIED BY REPEAT ANALYSIS 3 RESULTS VERIFIED BY REPEAT ANALYSIS 4 1 SST Procedures Description No Information Encounters Type Date Location Provider CPT E/M Dx Office Visit 11/23/2015 10:40a Main Office Ernestina Gomez M.D. 17130 Z02.89 Office Visit 06/22/2015 9:00a [facility] Office Markus Jones M.D. 46521 787.02 Office Visit 03/17/2015 9:30a Main Office Markus Jones M.D. 40697 V74.1 Office Visit 03/15/2015 8:00a Main Office Markus Jones M.D. 95922 V70.0 V74.1 Plan of Care 05/21/2018 - Laurence Castle, NPF33.1 Major depressive disorder, recurrent, moderateNew Medication:Bupropion HCL ER (XL) 150 mgComments:Come back for recheck in 3 weeks.R94.5 Abnormal results of liver function studiesNew Labs: Comp MetabolicEbv Antibody PanelIron PanelCMV Igg And IgmComments:Will check labs, move on to ultrasound if we don't see a clear cause of enzyme elevations.F41.9 Anxiety disorder, unspecifiedNew Medication:Lorazepam 0.5 mgComments:Use the lorazepam as needed for panic and/or trouble sleeping. Not more than 2-3 times per week.AllComments:1. Patient has been queried about patient's goals/preferences and functional/lifestyle goals at relevant visits. If relevant, describe: n/a2. Treatment goals as explained to the patient: better mood3. Are there barriers to meeting treatment goals? Yes No If Yes, please describe:4. Self-Management goals as described to the patient: Yes No
[2018-06-06 12:48] LABS: ABS Basophils 0.1 10^3/ul (0-0.2); ABS Eosinophils 0.1 10^3/ul (0-0.6); ABS Lymphocytes 2.3 10^3/ul (1.0-4.8); ABS Monocytes 0.7 10^3/ul (0-0.8); ABS Neutrophils 5.8 10^3/ul (1.5-7.7); ABS Nucleated RBC 0 10^3/ul; Eosinophil % 1.6 % (0-6); Hematocrit 49 % (42-52); Hemoglobin 16.5 g/dl (14.0-18.0); Lymphocyte % 25.8 % (25-47); Mean Corpuscular HGB Conc 34 g/dl (31-36); Mean Corpuscular Hemoglobin 29 pg (27-31); Mean Corpuscular Volume 87 fL (80-94); Mean Platelet Volume 8.2 um3 (7.4-10.4); Nucleated Red Blood Cells % 0.1; Platelet Count 232 10^3/ul (150-450); Red Blood Count 5.67 10^6/ul (4.00-5.40); Red Cell Distribution Width 14 % (10.5-15); White Blood Count 9.1 10^3/ul (3.5-10.8)
--- NOTE | 2018-06-06 12:56 | RAD ---
INDICATION: Chest pain COMPARISON: Similar chest x-ray May 11, 2018 TECHNIQUE: PA and lateral views of the chest were obtained. FINDINGS: The heart and mediastinum are normal in size and contour. The lungs are grossly clear. There is no evidence of large pleural effusion. Visualized bones are normal for the patient's age. There is no radiographic evidence of free air beneath the diaphragm IMPRESSION: No radiographic evidence of acute cardiopulmonary disease.
[2018-06-06 13:05] LABS: EGFR Non-African American 75.8 (>60)
[2018-06-06 14:02] VITALS: BP 129/74
== END 2018-06-06 14:47 | disposition home or self-care (01) ==
LOC: ED 12:00
DX: R07.89 Other chest pain (principal); R09.1 Pleurisy; R79.89 Other specified abnormal findings of blood chemistry
CPT/HCPCS: 36415; 71046; 80053; 84443; 85025; 85379; 86141; 93005; 96374; 99282; A9270-GY; J3490